=== PATIENT | female | born 1980 | race Caucasian/White ===

== ENCOUNTER 2019-03-23 18:00 | Emergency (ER) | payer OTHER, SELFPAY ==
[2019-03-23] MEDS ORDERED: cefTRIAXone\\ROCEPHIN 1 GM VIAL ONE (18:47)
[2019-03-23] MEDS ORDERED: Lidocaine 1% 20 ML MDV ONE (18:49)
== END 2019-03-23 19:35 | disposition home or self-care (01) ==
LOC: MADERS 18:00
DX: J01.40 Acute pansinusitis, unspecified (principal); J20.9 Acute bronchitis, unspecified
CPT/HCPCS: 87081; 87430; 87804; 96372; 99283; J0696; J1040; J2001

== ENCOUNTER 2019-07-14 11:19 | Emergency (ER) | payer SELFPAY ==
[2019-07-14] MEDS ORDERED: Ondansetron ODT 4 MG TAB ONE (11:53)
== END 2019-07-14 12:00 | disposition home or self-care (01) ==
LOC: MADERS 11:19
DX: A08.4 Viral intestinal infection, unspecified (principal)
CPT/HCPCS: 99283; Q0162

== ENCOUNTER 2020-07-25 16:57 | Emergency (ER) | payer OTHER, SELFPAY | END 2020-07-25 17:56 | disposition home or self-care (01) | LOC: MADERS 16:57 | DX: S92.512A Displaced fracture of proximal phalanx of left lesser toe(s), initial encounter for closed fracture (principal); W01.10XA Fall on same level from slipping, tripping and stumbling with subsequent striking against unspecified object, initial encounter; Y93.01 Activity, walking, marching and hiking | CPT/HCPCS: 28510 ==

== ENCOUNTER 2020-09-28 14:08 | Emergency (ER) | payer SELFPAY | END 2020-09-28 15:25 | disposition home or self-care (01) | LOC: MADERS 14:08 | DX: R05 Cough (principal); R09.81 Nasal congestion; R51.9 Headache, unspecified; H73.893 Other specified disorders of tympanic membrane, bilateral | CPT/HCPCS: 99283 ==

== ENCOUNTER 2020-10-08 18:45 | Emergency (ER) | payer SELFPAY ==
[2020-10-08 19:48] LABS: Bilirubin Negative (Negative); Blood, Urine Negative (Negative); Clarity Clear (Clear); Glucose, Urine (Dipstick) Negative (Negative); Ketone, Urine Negative (Negative); Leukocyte Negative (Negative); Nitrite Negative (Negative); Protein, Urine (Dipstick) Negative (Neg-Trace); Specific Gravity, Urine 1.015 (1.005-1.030); Urobilinogen 0.2 mg/dL (Less than 2); pH, Urine 5.5 (5.0-9.0)
[2020-10-08 19:52] LABS: Pregnancy Test - Urine (BHCG) Negative (Negative); Pregu Control Background? CLEAR/WHITE (CLR/WHITE); Pregu Control Bar Appear? YES (CONTROL BAR); Specific Gravity 1.015 (1.002-1.036)
[2020-10-08] MEDS ORDERED: Ibuprofen 400 MG TAB ONE (20:02)
[2020-10-08] MEDS ORDERED: Acetaminophen 500 MG TAB ONE (20:02)
== END 2020-10-08 20:17 | disposition home or self-care (01) ==
LOC: MADERS 18:45
DX: S39.012A Strain of muscle, fascia and tendon of lower back, initial encounter (principal); X50.1XXA Overexertion from prolonged static or awkward postures, initial encounter
CPT/HCPCS: 81003; 81025; 99283

== ENCOUNTER 2022-11-18 12:52 | Emergency (ER) | payer OTHER, SELFPAY ==
[~2022-11-18 12:52] MED LIST: Iopamidol 370 76% 100 ML VIAL ONE
[2022-11-18 13:26] LABS: #Basophils 0.1 thou/uL (0.0-0.2); #Eosinphils 0.1 thou/uL (0.0-0.7); #Lymphocytes 1.7 thou/uL (1.20-3.40); #Monocytes 0.6 thou/uL (0.11-0.59); %Basophils 0.7 % (0.0-1.0); %Eosinophils 0.7 % (0.0-10.0); %Lymphocytes 14.7 % (21.0-51.0); %Monocytes 5.3 % (0.0-10.0); %Neutrophils 78.6 % (42.0-75.0); Hemoglobin 14.6 g/dL (12.0-16.0); Mean Corpuscular HGB CONC 34.1 g/dL (32.0-36.0); Mean Corpuscular Hemoglobin 31.5 pg (27.0-31.0); Mean Corpuscular Volume 92.4 fl (78.0-98.0); Mean Platelet Volume 10.3 fL (7.4-10.4); Platelet Count 256 10x3/uL (130-400); RBC Distribution Width 11.9 % (11.5-14.5); Red Blood Cell (RBC) Count 4.62 mill/uL (4.20-5.40); White Blood Cell (WBC) Count 11.4 10x3/uL (4.8-10.8)
[2022-11-18 13:42] LABS: BHCG - Serum Negative (NEGATIVE); Pregs Control Background? CLEAR/WHITE (CLR/WHITE); Pregs Control Bar Appear? YES (CONTROL BAR)
[2022-11-18 13:43] LABS: ALT (SGPT) 14 U/L (8-55); AST (SGOT) 19 U/L (5-34); Alkaline Phosphatase 100 U/L (40-110); Anion Gap 13 mmol/L (10-20); BUN (Urea Nitrogen) 15 mg/dL (7.0-18.7); Bilirubin, Total 0.9 mg/dL (0.2-1.2); Calc. Creatinine Clearance 0 mL/min (70-130); Calcium 9.4 mg/dL (7.8-10.44); Carbon Dioxide 23 mmol/L (22-29); Chloride 106 mmol/L (98-107); Estimated GFR 71; Globulin 3.6 g/dL (2.4-3.5); Glucose 97 mg/dL (70-105); Lipase 22 U/L (8-78); Potassium 4.1 mmol/L (3.5-5.1); Protein, Total 7.6 g/dL (6.0-8.3); Sodium 138 mmol/L (136-145)
[2022-11-18] MEDS ORDERED: Ketorolac Tromethamine 30 MG/ML VIAL ONE (14:44)
[2022-11-18] MEDS ORDERED: Boostrix 0.5 ML (Tdap) VIAL (>/=7 yrs of age) ONE (14:44)
== END 2022-11-18 15:00 | disposition home or self-care (01) ==
LOC: MADERS 13:02
DX: S20.214A Contusion of middle front wall of thorax, initial encounter (principal); S60.512A Abrasion of left hand, initial encounter; S60.511A Abrasion of right hand, initial encounter; S00.511A Abrasion of lip, initial encounter; S30.810A Abrasion of lower back and pelvis, initial encounter; V89.2XXA Person injured in unspecified motor-vehicle accident, traffic, initial encounter
CPT/HCPCS: 36415; 70450; 71260; 72125; 74177; 80053; 83690; 84703; 85025; 86850; 86900; 86901; 90471; 90715; 96374; G0390; J1885; Q9967